=== PATIENT | female | born 1950 | race Caucasian/White ===

== ENCOUNTER 2020-05-05 13:39 | Inpatient (IN) | payer MEDICARE, OTHER ==
[~2020-05-05] VITALS: Ht 170.2 cm; Wt 63.5 kg
[2020-05-05] MEDS ORDERED: BLOOD SUGAR DIAGNOSTIC 1 EACH STRIP IN ONE (14:30)
[2020-05-05] MEDS ORDERED: ACETAMINOPHEN 325 MG TABLET PO PRN (14:30)
[2020-05-05] MEDS ORDERED: MAGNESIUM HYDROXIDE 30 ML UDC PO PRN (14:30)
[2020-05-05] MEDS ORDERED: ATOR10TA PO (14:48)
[2020-05-05] MEDS ORDERED: GLUTATHIONE PO (14:48)
[2020-05-05] MEDS ORDERED: PROP80CA51 PO (14:48)
[2020-05-05] MEDS ORDERED: HYDR12.55 PO (14:48)
[2020-05-05] MEDS ORDERED: CYAN10006 IM (14:48)
[2020-05-05] MEDS ORDERED: SODI500S5 PO (14:48)
[2020-05-05] MEDS ORDERED: CLON0.5T4 PO (14:48)
[2020-05-05] MEDS ORDERED: FAMO20TA8 PO (14:48)
[2020-05-05] MEDS ORDERED: LAMO200T2 PO (14:48)
[2020-05-05] MEDS ORDERED: POLY17PO4 PO (14:48)
[2020-05-05] MEDS ORDERED: LOSA50TA39 PO (14:48)
[2020-05-05] MEDS ORDERED: AMLO10TA4 PO (14:48)
[2020-05-05] MEDS ORDERED: CLID1CAP PO (14:48)
[2020-05-05] MEDS ORDERED: DESV100T PO (14:48)
[2020-05-05 14:53] VITALS: BP 134/75
[2020-05-05] MEDS ORDERED: HYDR-4354 PO (15:36)
--- NOTE | 2020-05-05 15:36 | NUR ---
GPS ADMISSION NOTE: RECEIVED PATIENT FROM [facility] PATIENT ARRIVED ON THIS UNIT AT 1400 VIA GURNEY PATIENT ADMITTED ON A 5150 HOLD FOR DTO,DTS. PER HOLD PATIENT MADE A STATEMENT TO JUMP IN THE GARCIA THREATENED HER . THE 5150 WAS REVIEWED AND THE DOCUMENTATION IN THE 5150 HOLD APPEARS TO REFLECT THE PRESENTATION OF THE PATIENT. UPON FACE TO FACE ASSESSMENT PATIENT IS CURRENTLY LYING IN BED AWAKE, HAS NO S/S OR COMPLAINTS OF PAIN. PATIENT IS DISPLAYING NO S/S OF APPARENT DISTRESS. PATIENT BREATHING IS UNLABORED WITH EQUAL RISE AND FALL OF THE CHEST. PATIENT IS ALERT AND ORIENTATED X 3 ON ROOM AIR. PATIENT ASSISTED WITH TURING AND REPOSITIONING Q2HR AND PRN FOR COMFORT AND CIRCULATION. PATIENT HAS NO NEEDS AT THIS TIME. PATIENT DEPRESSED MOOD ISOLATIVE . PATIENT DENIES SUICIDE IDEATIONS AND HOMICIDAL IDEATIONS AT THIS TIME. PATIENT IS UNDER THE PSYCHIATRIC CARE OF DR. SWAIN AND THE MEDICAL CARE OF DR PICKERING PATIENT BELONGINGS WERE INVENTORIED AND CHECKED FOR CONTRABAND. ALL CONTRABAND REMOVED AND STORED IN PATIENT HALLWAY LOCKER. PATIENT ADVANCED DIRECTIVES PREFERENCE, IMMUNIZATIONS QUESTIONER COMPLETED.PATIENT HAS FLU VACCINE 2019, PNEUMONIA VACCINE 1017, PATIENT AMBULATORY STEADY GAIT DR WILIAM PICKERING NOTIFIED WITH STANDING ORDERS , HOME RECONCILIATION. PATIENT SKIN ASSESSMENT DONE SKIN INTACT AND CLEAN. PATIENTS RIGHTS HANDBOOK, AND ALSO REFUSED TO SIGNS ALL PAPER WORK. PATIENT ORIENTATED TO ROOM, FLOOR, AND STAFF WITH ALL QUESTIONS ANSWERED. PATIENT EDUCATED ON THE USE OF THE CALL SIMPSON. PATIENT BED SIDE RAILS ARE UP X 2 FOR SAFETY. PATIENT BED IS LOCKED, LOW AND I WILL CONTINUE TO MONITOR THIS PATIENT Q 15 MIN WITH THE HELP OF STAFF TO MAINTAIN SAFETY.
[2020-05-05 16:00] VITALS: BP 111/70
[2020-05-05] MEDS ORDERED: CLIDINIUM BR/CHLORDIAZEPOXIDE 1 CAP PO PRN (17:30)
[2020-05-05 20:00] VITALS: BP 130/70
[2020-05-05] MEDS: risperiDONE 1 MG TABLET PO SCH (20:14)
[2020-05-05] MEDS ORDERED: LamoTRIgine 25 MG TABLET PO SCH (22:00)
[2020-05-05] MEDS: HYDROCODONE/APAP 10/325MG TABLET PO PRN (22:25)
--- NOTE | 2020-05-05 22:26 | NUR ---
RN NOTES COMPLAINED OF BILATERAL SCIATIC NERVE PAIN- NORCO 10MG PO GIVEN ORDERED, V/S STABLE
[2020-05-06 07:28] LABS: ALBUMIN 4.2 g/dL (3.4-5.0); BILIRUBIN,TOTAL 0.5 mg/dL (0.2-1.0); CALCIUM, SERUM 9.4 mg/dL (8.5-10.1); CREATININE 0.7 mg/dL (0.6-1.3); POTASSIUM 3.3 mmol/L (3.5-5.1); TOTAL PROTEIN, SERUM 7.6 g/dL (6.4-8.2)
[2020-05-06 08:00] VITALS: BP 127/71
[2020-05-06] MEDS: ATORVASTATIN 10 MG TABLET PO SCH (08:50)
[2020-05-06] MEDS: FAMOTIDINE (20 MG) 20 MG TABLET PO SCH ×2 (08:50→16:27)
[2020-05-06] MEDS: PROPRANOLOL HCL 40 MG TABLET PO SCH (08:51)
[2020-05-06] MEDS: VENLAFAXINE XR 150 MG CAP.SR.24H PO SCH (08:51)
[2020-05-06] MEDS: LOSARTAN POTASSIUM 50 MG TABLET PO SCH (08:51)
[2020-05-06] MEDS: risperiDONE 1 MG TABLET PO SCH ×2 (08:52→16:27)
[2020-05-06] MEDS: HYDROCHLOROTHIAZIDE 25 MG TABLET PO SCH (08:52)
[2020-05-06] MEDS: AMLODIPINE BESYLATE 10 MG TABLET PO SCH (08:54)
[2020-05-06] MEDS: POLYETHYLENE GLYCOL 3350 17 GM POWD.PACK PO SCH (08:54)
[2020-05-06] MEDS ORDERED: POTASSIUM CHLORIDE 20 MEQ TAB.PRT.SR PO ONE (09:30)
[2020-05-06] MEDS: HYDROCODONE/APAP 10/325MG TABLET PO PRN (10:06)
--- NOTE | 2020-05-06 10:07 | NUR ---
GPS/RN-NOTES PATIENT C/O 8 GENERALIZED BODY PAIN. NORCO 10/325MG 1 TAB. P.O GIVEN PRN ORDER. WILL CONT. MONITORING FOR SAFETY AND BEHAVIOR.
--- NOTE | 2020-05-06 14:17 | NUR ---
Initial Discharge Plan: Pt currently resides at her home with her family located at [address] [place] [id number]; ([phone]). Per pt, she would like to return to her home. SW will work with the pt and the MD regarding appropriate discharge planning. SW will form a safe and proper discharge.
[2020-05-06 16:00] VITALS: BP 100/59
[2020-05-06] MEDS: MAG HYDROX/AL HYDROX/SIMETH 30 ML UDC PO PRN (18:57)
--- NOTE | 2020-05-06 18:57 | NUR ---
GPS/RN-NOTES PATIENT C/O INDIGESTION, MAALOX 30ML GIVEN PRN ORDER. WILL ENDORSE TO INCOMING NURSE TO CONTINUE MONITORING AND CONTINUITY OF CARE.
[2020-05-06 20:08] VITALS: BP 101/54
[2020-05-06] MEDS: LamoTRIgine 100 MG TABLET PO SCH (21:09)
--- NOTE | 2020-05-07 06:26 | NUR ---
GPS RN NOTES: PT. RESTING IN HER ROOM, CALM NOTED AT THIS TIME . NO S/S OF DISTRESS NOTED ,NO CHANGE OF CONDITION NOTED , ALL CARE NEEDS MET ANTICIPATED. MED COMPLIANT ,NO BEHAVIOR PROBLEMS NOTED ,WILL CONTINUE TO MONITOR FOR SAFETY BEHAVIOR, AND ENDORSE TO AM SHIFT FOR CONTINUITY OF CARE.
[2020-05-07] MEDS: MAG HYDROX/AL HYDROX/SIMETH 30 ML UDC PO PRN ×2 (06:55→13:06)
--- NOTE | 2020-05-07 07:00 | NUR ---
RN NOTES: INDIGESTION PATIENT C/O INDIGESTION, MAALOX 30 ML PO GIVEN PRN ORDER. WILL CONTINUE TO MONITORING AND CONTINUITY OF CARE.
[2020-05-07 08:01] VITALS: BP 127/72
[2020-05-07] MEDS: VENLAFAXINE XR 150 MG CAP.SR.24H PO SCH (08:32)
[2020-05-07] MEDS: ATORVASTATIN 10 MG TABLET PO SCH (08:32)
[2020-05-07] MEDS: HYDROCHLOROTHIAZIDE 25 MG TABLET PO SCH (08:32)
[2020-05-07] MEDS: FAMOTIDINE (20 MG) 20 MG TABLET PO SCH ×2 (08:32→16:41)
[2020-05-07] MEDS: PROPRANOLOL HCL 40 MG TABLET PO SCH (08:33)
[2020-05-07] MEDS: POLYETHYLENE GLYCOL 3350 17 GM POWD.PACK PO SCH (08:33)
[2020-05-07] MEDS: risperiDONE 1 MG TABLET PO SCH ×2 (08:33→16:41)
[2020-05-07] MEDS: LOSARTAN POTASSIUM 50 MG TABLET PO SCH (10:01)
[2020-05-07] MEDS: HYDROCODONE/APAP 10/325MG TABLET PO PRN ×2 (10:01→20:03)
[2020-05-07] MEDS: AMLODIPINE BESYLATE 10 MG TABLET PO SCH (10:01)
[2020-05-07 16:00] VITALS: BP 103/65
[2020-05-07 19:47] VITALS: BP 116/64
[2020-05-07 19:50] VITALS: BP 116/64
[2020-05-07] MEDS: LamoTRIgine 100 MG TABLET PO SCH (21:13)
[2020-05-08 08:00] VITALS: BP 134/75
[2020-05-08] MEDS: VENLAFAXINE XR 150 MG CAP.SR.24H PO SCH (08:50)
[2020-05-08] MEDS: risperiDONE 1 MG TABLET PO SCH ×2 (08:51→16:47)
[2020-05-08] MEDS: POLYETHYLENE GLYCOL 3350 17 GM POWD.PACK PO SCH (08:51)
[2020-05-08] MEDS: FAMOTIDINE (20 MG) 20 MG TABLET PO SCH ×2 (08:51→16:47)
[2020-05-08] MEDS: MAG HYDROX/AL HYDROX/SIMETH 30 ML UDC PO PRN (08:53)
[2020-05-08] MEDS: ATORVASTATIN 10 MG TABLET PO SCH (08:55)
[2020-05-08] MEDS: HYDROCHLOROTHIAZIDE 25 MG TABLET PO SCH (08:56)
[2020-05-08] MEDS: LOSARTAN POTASSIUM 50 MG TABLET PO SCH (08:57)
[2020-05-08] MEDS: AMLODIPINE BESYLATE 10 MG TABLET PO SCH (08:57)
[2020-05-08] MEDS: PROPRANOLOL HCL 40 MG TABLET PO SCH (08:59)
[2020-05-08] MEDS: HYDROCODONE/APAP 10/325MG TABLET PO PRN ×3 (09:10→21:28)
[2020-05-08 16:00] VITALS: BP 110/72
[2020-05-08 20:46] VITALS: BP 118/80
[2020-05-08] MEDS: LamoTRIgine 100 MG TABLET PO SCH (21:14)
--- NOTE | 2020-05-08 21:30 | NUR ---
GPS RN NOTE: PAIN PT. C/O OF 10/10 GENERALIZED PAIN. ADMINISTERED NORCO 10-325 PO PRN ORDERED. WILL CONTINUE TO MONITOR.
[2020-05-08] MEDS: TEMAZEPAM 7.5 MG CAPSULE PO PRN (22:38)
--- NOTE | 2020-05-08 22:49 | NUR ---
GPS RN NOTE: INSOMNIA PT UNABLE TO SLEEP AND REQUESTED SLEEPING PILL. ADMINISTERED RESTORIL 7.5 MG PO PRN ORDERED. WILL CONTINUE TO MONITOR.
[2020-05-09] MEDS: HYDROCODONE/APAP 10/325MG TABLET PO PRN ×4 (06:36→22:02)
--- NOTE | 2020-05-09 06:38 | NUR ---
GPS RN NOTE: PAIN PT. C/O OF 10/10 GENERALIZED PAIN. ADMINISTERED NORCO 10-325 PO PRN ORDERED. WILL CONTINUE TO MONITOR.
[2020-05-09 08:00] VITALS: BP 133/78
[2020-05-09] MEDS: POLYETHYLENE GLYCOL 3350 17 GM POWD.PACK PO SCH (09:03)
[2020-05-09] MEDS: FAMOTIDINE (20 MG) 20 MG TABLET PO SCH ×2 (09:03→16:45)
[2020-05-09] MEDS: risperiDONE 1 MG TABLET PO SCH ×2 (09:04→16:45)
[2020-05-09] MEDS: HYDROCHLOROTHIAZIDE 25 MG TABLET PO SCH (09:05)
[2020-05-09] MEDS: VENLAFAXINE XR 150 MG CAP.SR.24H PO SCH (09:05)
[2020-05-09] MEDS: ATORVASTATIN 10 MG TABLET PO SCH (09:06)
[2020-05-09] MEDS: PROPRANOLOL HCL 40 MG TABLET PO SCH (09:06)
[2020-05-09] MEDS: AMLODIPINE BESYLATE 10 MG TABLET PO SCH (09:06)
[2020-05-09] MEDS: LOSARTAN POTASSIUM 50 MG TABLET PO SCH (12:58)
--- NOTE | 2020-05-09 12:58 | NUR ---
RN NOTES ADMINISTERED NARCO 10/325 MG PO PRN FOR LOWER BACK PAIN 02/22 PER PATIENT REQUEST, V/S TAKEN BP 116/74, P-75, R-18. CONTINUED MONITORING.
[2020-05-09 16:00] VITALS: BP 125/74
[2020-05-09] MEDS: LORAZEPAM 0.5 MG TABLET PO PRN (16:44)
--- NOTE | 2020-05-09 16:44 | NUR ---
rn notes administered ativan 0.5 mg po prn for anxiety per patient request, v/s taken bp 125/74, p-81, continued monitoring.
--- NOTE | 2020-05-09 17:46 | NUR ---
rn notes administered narco 10/325 mg po prn for lower back pain 03/25 per patient request, v/s taken bp 125/74, p-81,r-18, continued monitoring.
[2020-05-09 20:11] VITALS: BP 125/67
[2020-05-09] MEDS: TEMAZEPAM 7.5 MG CAPSULE PO PRN (21:14)
[2020-05-09] MEDS: LamoTRIgine 100 MG TABLET PO SCH (21:14)
--- NOTE | 2020-05-09 21:16 | NUR ---
GPS RN NOTE: INSOMNIA PT C/O OF INSOMNIA, REQUESTED GABBY, VSS, ADMIN RESTORIL PRN @ 2113, WILL REASESS AND CONTINUE TO MONITOR Q15MIN FOR SAFETY AND BEHAVIOR.
--- NOTE | 2020-05-09 22:02 | NUR ---
GPS RN NOTE: PAIN PT WAS C/O OF 8/10 BODY THROUGHOUT THE BODY, PT REQUESTED NORCO, ADMIN NORCO PRN @ 2001, WILL REASSESS AND CONTINUE TO MONITOR Q15MIN FOR SAFETY AND BEHAVIOR.
[2020-05-10 08:00] VITALS: BP 145/95
--- NOTE | 2020-05-10 08:00 | NUR ---
GPS RN NOTES RECEIVED PT RESTING IN HER ROOM, CALM NOTED AT THIS TIME . NO CARDIAC OR RESP DISTRESS NOTED. NO SOB NOTED. SATURATING WELL ON ROOM AIR. NO S/S OF DISTRESS NOTED , PT C/O BACK PAIN 02/22. NORCO NOW DUE. WILL ADMNISTER. NO BEHAVIORAL ISSUES NOTED AT THIS TIME. PT IS CALM AND PLEASANT. PT IS AMBULATORY WITH STEADY GAIT. WILL CONT TO MONITOR.
[2020-05-10] MEDS: risperiDONE 1 MG TABLET PO SCH ×2 (08:46→16:36)
[2020-05-10] MEDS: HYDROCHLOROTHIAZIDE 25 MG TABLET PO SCH (08:46)
[2020-05-10] MEDS: ATORVASTATIN 10 MG TABLET PO SCH (08:46)
[2020-05-10] MEDS: HYDROCODONE/APAP 10/325MG TABLET PO PRN ×4 (08:46→22:34)
[2020-05-10] MEDS: PROPRANOLOL HCL 40 MG TABLET PO SCH (08:47)
[2020-05-10] MEDS: FAMOTIDINE (20 MG) 20 MG TABLET PO SCH ×2 (08:47→16:35)
[2020-05-10] MEDS: AMLODIPINE BESYLATE 10 MG TABLET PO SCH (08:47)
[2020-05-10] MEDS: VENLAFAXINE XR 150 MG CAP.SR.24H PO SCH (08:47)
[2020-05-10] MEDS: POLYETHYLENE GLYCOL 3350 17 GM POWD.PACK PO SCH (08:48)
[2020-05-10] MEDS: LOSARTAN POTASSIUM 50 MG TABLET PO SCH (09:16)
[2020-05-10 16:00] VITALS: BP 115/56
[2020-05-10 19:57] VITALS: BP 90/49
[2020-05-10] MEDS: TEMAZEPAM 7.5 MG CAPSULE PO PRN (21:27)
--- NOTE | 2020-05-10 21:27 | NUR ---
GPS RN NOTE: INSOMNIA PT C/O OF INSOMNIA, ADMIN RESTORIL @ 6346 PRN, WILL REASSESS AND CONTINUE TO MONITOR Q15MIN FOR SAFETY AND BEHAVIOR
[2020-05-10] MEDS: LamoTRIgine 100 MG TABLET PO SCH (21:28)
--- NOTE | 2020-05-10 22:35 | NUR ---
GPS RN NOTE: PAIN PT C/O OF 01/22 PAIN REQUESTED NORCO, ADMIN DEBCO PRN @ 5666. WILL REASSESS AND CONTINUE TO MONITOR Q15MIN FOR SAFETY AND BEHAVIOR
[2020-05-11 08:00] VITALS: BP 129/74
[2020-05-11] MEDS: HYDROCODONE/APAP 10/325MG TABLET PO PRN ×4 (08:06→22:47)
--- NOTE | 2020-05-11 08:08 | NUR ---
GIVEN NORCO FOR RAFAELA. HIP PAIN.
[2020-05-11] MEDS: POLYETHYLENE GLYCOL 3350 17 GM POWD.PACK PO SCH (09:00)
[2020-05-11] MEDS: HYDROCHLOROTHIAZIDE 25 MG TABLET PO SCH (09:19)
[2020-05-11] MEDS: PROPRANOLOL HCL 40 MG TABLET PO SCH (09:20)
[2020-05-11] MEDS: VENLAFAXINE XR 150 MG CAP.SR.24H PO SCH (09:20)
[2020-05-11] MEDS: FAMOTIDINE (20 MG) 20 MG TABLET PO SCH ×2 (09:27→18:07)
[2020-05-11] MEDS: risperiDONE 1 MG TABLET PO SCH ×2 (09:29→18:07)
[2020-05-11] MEDS: AMLODIPINE BESYLATE 10 MG TABLET PO SCH (11:45)
[2020-05-11] MEDS: LOSARTAN POTASSIUM 50 MG TABLET PO SCH (11:45)
--- NOTE | 2020-05-11 12:01 | NUR ---
PROBABLE CAUSE HEARING: Patient probable cause hearing was today and it was upheld for grave disability, danger to self, and danger to others.
[2020-05-11] MEDS: ATORVASTATIN 10 MG TABLET PO SCH (13:03)
--- NOTE | 2020-05-11 13:08 | NUR ---
given norco for trent. hip pain.
--- NOTE | 2020-05-11 15:16 | NUR ---
UR Note: SW noticed pt's insurance information was not provided. This policy writer contacted Rand Gonzalez to gather more information and informed bilingual patient support caseworker is Naheed ([phone]) ext. [phone]. Auth: [id number]. This SW left clinical voicemail and is waiting for bilingual patient support caseworker to contact this policy writer.
--- NOTE | 2020-05-11 15:47 | NUR ---
Individual Intervention: This sports writer met with pt for brief counseling. Pt appeared less paranoid. Pt was fixated on her discharge while this sports writer was conducting brief counseling. This sports writer was unable to have proper counseling at this moment.
[2020-05-11 16:00] VITALS: BP 110/71
--- NOTE | 2020-05-11 17:18 | NUR ---
MEDICATED AGAIN FOR PAIN RT. AND LT. HIP.
[2020-05-11 20:07] VITALS: BP 118/68
[2020-05-11] MEDS: LamoTRIgine 100 MG TABLET PO SCH (21:05)
[2020-05-11] MEDS: TEMAZEPAM 7.5 MG CAPSULE PO PRN (21:06)
--- NOTE | 2020-05-11 21:06 | NUR ---
GPS-RN NOTE: INSOMNIA PATIENT C/O INABILITY TO SLEEP. ADMINISTERED RESTORIL 7.5MG PO ORDERED. WILL CONTINUE TO MONITOR.
--- NOTE | 2020-05-11 22:48 | NUR ---
GPS-RN NOTE: BILATERAL HIP PAIN PATIENT C/O BILATERAL HIP PAIN, ON A PAIN SCALE 8/10. ADMINISTERED NORCO 10/325MG 1 TAB PO ORDERED. WILL CONTINUE TO REASSESS.
[2020-05-12 08:00] VITALS: BP 144/84
[2020-05-12] MEDS: POLYETHYLENE GLYCOL 3350 17 GM POWD.PACK PO SCH (09:21)
[2020-05-12] MEDS: HYDROCHLOROTHIAZIDE 25 MG TABLET PO SCH (09:22)
[2020-05-12] MEDS: PROPRANOLOL HCL 40 MG TABLET PO SCH (09:22)
[2020-05-12] MEDS: FAMOTIDINE (20 MG) 20 MG TABLET PO SCH ×2 (09:23→18:07)
[2020-05-12] MEDS: risperiDONE 1 MG TABLET PO SCH ×2 (09:23→18:08)
[2020-05-12] MEDS: VENLAFAXINE XR 150 MG CAP.SR.24H PO SCH (09:23)
--- NOTE | 2020-05-12 09:32 | NUR ---
SW Family Contact: Pt stated her daughter Marifer lives in [place]. Pt stated her is terminally ill. This content writer contacted pt's house number ([phone]) and left a voicemail.
--- NOTE | 2020-05-12 10:53 | NUR ---
UR Note: This policy writer sales received a phone call from Naheed case resolution specialist ([phone]) ext. [phone] and stated she authorized until 05/12. Auth: [id number].
[2020-05-12] MEDS: HYDROCODONE/APAP 10/325MG TABLET PO PRN (11:34)
--- NOTE | 2020-05-12 11:35 | NUR ---
given norco for trent. hip pain.
[2020-05-12] MEDS: ATORVASTATIN 10 MG TABLET PO SCH (13:41)
--- NOTE | 2020-05-12 14:03 | NUR ---
[facility] Transportation: This medical underwriter met with pt to discuss transportation agreement. Pt is alert and oriented x4. Pt stated she would want to take the bus.
--- NOTE | 2020-05-12 15:10 | NUR ---
Friend Contact: This video games storywriter spoke with pt's friend Tyler ([phone]) who stated she will spanish moss picker pt from [facility] at 5:40pm and take her home.
[2020-05-12 16:00] VITALS: BP 131/78
[2020-05-12] MEDS: AMLODIPINE BESYLATE 10 MG TABLET PO SCH (18:07)
--- NOTE | 2020-05-12 18:25 | NUR ---
bp meds as hx of low bp after meds.
[2020-05-12] MEDS: LOSARTAN POTASSIUM 50 MG TABLET PO SCH (18:47)
[2020-05-12 19:44] VITALS: BP 113/68
[2020-05-12] MEDS: LamoTRIgine 100 MG TABLET PO SCH (21:03)
[2020-05-12] MEDS: TEMAZEPAM 7.5 MG CAPSULE PO PRN (21:03)
--- NOTE | 2020-05-12 21:06 | NUR ---
GPS RN NOTE: INSOMNIA PT C/O OF INSOMNIA, ADMIN RESTORIL PRN @ 7369,ALL NEEDS MET AT THIS TIME. WILL CONTINUE TO MONITOR Q15MIN FOR SAFETY AND BEHAVIOR.
[2020-05-13 08:00] VITALS: BP 151/87
[2020-05-13] MEDS: POLYETHYLENE GLYCOL 3350 17 GM POWD.PACK PO SCH (08:01)
[2020-05-13] MEDS: AMLODIPINE BESYLATE 10 MG TABLET PO SCH (08:02)
[2020-05-13] MEDS: FAMOTIDINE (20 MG) 20 MG TABLET PO SCH (08:02)
[2020-05-13] MEDS: HYDROCHLOROTHIAZIDE 25 MG TABLET PO SCH (08:02)
[2020-05-13] MEDS: VENLAFAXINE XR 150 MG CAP.SR.24H PO SCH (08:02)
[2020-05-13 08:03] VITALS: BP 151/87
[2020-05-13] MEDS: risperiDONE 1 MG TABLET PO SCH (08:03)
[2020-05-13] MEDS: PROPRANOLOL HCL 40 MG TABLET PO SCH (08:03)
[2020-05-13] MEDS: LOSARTAN POTASSIUM 50 MG TABLET PO SCH (08:03)
[2020-05-13] MEDS: ATORVASTATIN 10 MG TABLET PO SCH (08:03)
--- NOTE | 2020-05-13 08:25 | NUR ---
SW Discharge Note: Patient will be discharged [address] [facility], [place] [address]; ([phone]). Patient will be provided via taxi transportation at 1PM and will be provided with a voucher. Pt will head to [facility] (Depart at 3:28PM) and will arrive to [facility] (Arrival at 5:41PM). Transportation was provided through [facility] ([phone]) per Sherrill green provided pts bus voucher back to [facility]. Pt's friend Tyler ([phone]) will cotton picker pt at [facility]. Pt is aware and agreeable. Upon discharge, patient appear to be calm, cooperative and happy to be going home. Patient denies suicidal and homicidal ideation. Pt appeared alert and oriented x4. Patient will follow up with (Statistician Mathematical) Dr. Giraldo located at [address] [place] [address]; ([phone]) guest relations receptionist Jessica stated they will contact pt for an apt after discharge. Patient will follow up with (psychiatrist) Dr. Vargas located at [address] [place] [address] [address], [place] [address]; ([phone]) and has an appointment scheduled on 05/18/2020 at 9AM via [facility] tele[facility]. Patient presented with euthymic mood and congruent affect.
--- NOTE | 2020-05-13 09:12 | NUR ---
Dr. Laurent gave an order to D/C hold and D/C home and to follow up with psych and medical doctors. Psychiatrist provided prescriptions of 1 month supply with no refill.
[2020-05-13] MEDS: LORAZEPAM 0.5 MG TABLET PO PRN (11:30)
[2020-05-13] MEDS: HYDROCODONE/APAP 10/325MG TABLET PO PRN (12:16)
--- NOTE | 2020-05-13 14:10 | NUR ---
GPS/RN - Discharge Note Patient is alert and oriented x 4, calm, ambulatory, denies pain, not in any form of distress, afebrile. Patient is compliant with medications and cooperative with treatment plans. Patient denies suicidal ideation or homicidal ideation, no visual or auditory hallucinations at this time and instructed to go to the nearest ER if developing SI/HI. Reviewed discharge instructions with patient and she verbalized full understanding. Patient refused pictures to be taken, skin is intact. Returned all personal belongings to patient and she deny any missing items. Patient left the unit at 14:00 via taxi.
== END 2020-05-13 14:00 | disposition home or self-care (01) | DRG 885 ==
LOC: GPS 13:39
PROVIDERS: ADMIT Psychiatry & Neurology Psychiatry; ATTEND Internal Medicine
DX: F29 Unspecified psychosis not due to a substance or known physiological condition (principal); F32.3 Major depressive disorder, single episode, severe with psychotic features; F23 Brief psychotic disorder; R45.851 Suicidal ideations; E78.5 Hyperlipidemia, unspecified; F32.9 Major depressive disorder, single episode, unspecified; F41.9 Anxiety disorder, unspecified; G89.4 Chronic pain syndrome; I10 Essential (primary) hypertension; K21.9 Gastro-esophageal reflux disease without esophagitis; M79.7 Fibromyalgia; M62.81 Muscle weakness (generalized)
CPT/HCPCS: 36415; 80053-TC; 80061-TC; 82962-TC; 87081-TC